=== PATIENT | female | born 1975 | race Caucasian/White ===

== ENCOUNTER 2017-01-24 11:04 | Day surgery (SDC) | payer BC ==
[~2017-01-24 11:04] MED LIST: Lactated Ringers 1,000 ML IV SCH; Lidocaine 1%/Sod Bicarbonate in NS 8.4% 1 ML Syringe IV PRN; Sodium Chloride 0.9% 10 ML Syringe FLUSH PRN
[2017-01-24] MEDS ORDERED: fentaNYL 100 MCG/2 ML SDV ONE (11:30)
[2017-01-24] MEDS ORDERED: Midazolam 1 MG/ML 2 ML SDV ONE (11:30)
[2017-01-24] MEDS ORDERED: Lidocaine 1% 4 ML ONE (11:30)
[2017-01-24] MEDS ORDERED: Propofol 200 MG/20 ML SDV ONE (11:30)
[2017-01-24] MEDS ORDERED: Dexamethasone 4 MG/ML 5 ML MDV ONE (11:33)
[2017-01-24] MEDS ORDERED: Ondansetron 4 MG/2 ML SDV ONE (11:34)
[2017-01-24] MEDS ORDERED: Ketamine 500 mg/10 ML MDV ONE (11:43)
--- NOTE | 2017-01-24 11:51 | PCM.PREANE ---
Preanesthetic Assessment - Anesthesia/Transfusion/Family Hx Anesthesia History: Prior Anesthesia Without Reaction Type of Anesthesia Reaction: Other (see below) Family History of Anesthesia Reaction: No Transfusion History: No Prior Transfusion(s) Type of Transfusion Reactions: Reports: Unknown Intubation History: Unknown - Review of Systems General: No Symptoms Pulmonary: No Symptoms Cardiovascular: No Symptoms Gastrointestinal: No symptoms Neurological: No Symptoms Other: Reports: None - Physical Assessment NPO Status Date: 01/23/17 NPO Status Time: 18:00 Pulse: 79 O2 Sat by Pulse Oximetry: 98 Respiratory Rate: 16 Blood Pressure: 112/75 Temperature: 37.4 C Height: 1.63 m Weight: 53.977 kg ASA Class: 2 Mental Status: Alert & Oriented x3 Airway Class: Mallampati = 1 Dentition: Reports: Normal Dentition Thyro-Mental Finger Breadths: 3 Mouth Opening Finger Breadths: 3 ROM/Head Extension: Full Lungs: Clear to auscultation, Normal respiratory effort Cardiovascular: Regular Rate, Regular Rhythm - Allergies Allergies/Adverse Reactions: Allergies Allergy/AdvReac Type Severity Reaction Status Date / Time No Known Allergies Allergy Verified 01/23/17 15:00 - Blood Blood Available: No Product(s) Available: None - Anesthesia Plan Pre-Op Medication Ordered: None - Acknowledgements Anesthesia Type Planned: MAC Pt an Appropriate Candidate for the Planned Anesthesia: Yes Alternatives and Risks of Anesthesia Discussed w Pt/Guardian: Yes Pt/Guardian Understands and Agrees with Anesthesia Plan: Yes PreAnesthesia Questionnaire - Past Health History Medical/Surgical History: Denies Medical/Surgical History HEENT History: Reports: None Cardiovascular History: Reports: None Respiratory History: Reports: None Gastrointestinal History: Reports: None Genitourinary History: Reports: None Musculoskeletal History: Reports: None Neurological History: Reports: None Psychiatric History: Reports: None, Anxiety Endocrine/Metabolic History: Reports: None Hematologic History: Reports: None Immunologic History: Reports: None Oncologic (Cancer) History: Reports: None Dermatologic History: Reports: None - Past Surgical History Head Surgeries/Procedures: Reports: None Musculoskeletal Surgical History: Reports: Other (see below) Other Musculoskeletal Surgeries/Procedures:: knee surgery for bursa sac removal - SUBSTANCE USE Smoking Status *Q: Never Smoker Tobacco Use Within Last Twelve Months: No Second Hand Smoke Exposure: No Recreational Drug Use History: No - HOME MEDS Home Medications: Home Meds Lactobacillus Acidophilus [Probiotic] 1 cap PO DAILY 10/10/16 [History] Multivitamin [Daily Multiple Vitamin] 1 tab PO DAILY 10/10/16 [History] Cyclobenzaprine [Flexeril] 10 mg PO TID PRN #40 tablet 01/24/17 [Rx] Hydrocodone/Acetaminophen [Lavina 5-325 Tablet] 1 - 2 each PO Q6H PRN #40 tablet 01/24/17 [Rx] - CURRENT (IN HOUSE) MEDS Current Meds: Current Medications Lactated Ringer's (Ringers, Lactated) 1,000 mls @ 125 mls/hr IV ASDIRECTED KRISTEN Stop: 01/24/17 23:00 Lidocaine/Sodium Bicarbonate (Buffered Lidocaine 1% In Ns 8.4%) 0.25 ml IV ONETIME PRN PRN Reason: Prior to IV Start Stop: 01/24/17 18:00 Sodium Chloride (Saline Flush) 10 ml FLUSH ASDIRECTED PRN PRN Reason: Keep Vein Open Stop: 01/24/17 18:00 Discontinued Medications Dexamethasone (Dexamethasone) Confirm Administered Dose 20 mg .ROUTE .STK-MED ONE Stop: 01/24/17 11:34 Fentanyl (Sublimaze) Confirm Administered Dose 100 mcg .ROUTE .STK-MED ONE Stop: 01/24/17 11:31 Lidocaine HCl (Xylocaine-Mpf 1%) Confirm Administered Dose 4 mls @ as directed .ROUTE .STK-MED ONE Stop: 01/24/17 11:31 Ketamine HCl (Ketalar) Confirm Administered Dose 500 mg .ROUTE .STK-MED ONE Stop: 01/24/17 11:44 Midazolam HCl (Versed 1 Mg/Ml) Confirm Administered Dose 2 mg .ROUTE .STK-MED ONE Stop: 01/24/17 11:31 Ondansetron HCl (Zofran) Confirm Administered Dose 4 mg .ROUTE .STK-MED ONE Stop: 01/24/17 11:35 Propofol (Diprivan 20 Ml) Confirm Administered Dose 200 mg .ROUTE .STK-MED ONE Stop: 01/24/17 11:31
--- NOTE | 2017-01-24 12:41 | PCM48HPAN ---
Post Anesthesia Note - EVALUATION WITHIN 48HRS OF ANESTHETIC Vital Signs in Normal Range: Yes Patient Participated in Evaluation: Yes Respiratory Function Stable: Yes Airway Patent: Yes Cardiovascular Function Stable: Yes Hydration Status Stable: Yes Pain Control Satisfactory: Yes Nausea and Vomiting Control Satisfactory: Yes Mental Status Recovered: Yes
[2017-01-24] MEDS ORDERED: Lactated Ringers 1,000 ML ONE (12:42)
[2017-01-24 13:06] VITALS: BP 110/73
--- NOTE | 2017-01-24 13:46 | CR ---
Left wrist: Multiple fluoroscopic spot views were obtained of the left wrist during manipulation. Study obtained utilizing C-arm device. Plate and screws noted within the distal radius. Equivocal extension of one screw into the joint space is noted although this is not identified on all views and could be projectional. No additional finding is appreciated. Fluoroscopy time given as 29.7 seconds. Impression: 1. Findings as noted above. Diagnostic code #3
--- NOTE | 2017-01-29 06:55 | PCM.OPNOTE ---
- General Post-Op/Procedure Note Date of Surgery/Procedure: 01/24/17 Operative Procedure(s): left wrist manipulation Pre Op Diagnosis: arthrofibrosis left wrist Post-Op Diagnosis: Same Anesthesia Technique: MAC Primary Surgeon: Antonio Moncada Anesthesia Provider: Low Nguyen Emt I/99: Deisy Boyd EBDanyelle in mLs: 0 Complications: None Condition: Good
--- NOTE | 2017-01-29 10:12 | OR ---
DATE OF OPERATION: 01/24/2017 SURGEON: Antonio Moncada MD OPERATION PERFORMED: Left wrist manipulation. PREOPERATIVE DIAGNOSIS: Arthrofibrosis, left wrist. POSTOPERATIVE DIAGNOSIS: Arthrofibrosis, left wrist. ANESTHESIA: MAC. ANESTHESIA PROVIDER: Low Nguyen. TESTER ARMATURE OR FIELDS: Deisy Boyd PA-C. ESTIMATED BLOOD LOSS: Zero mL. COMPLICATIONS: None. CONDITION: Stable. DESCRIPTION OF PROCEDURE: The patient was identified in the preop holding area. Proper site was marked and identified by the surgeon. The patient was taken back to the operating theater, where after adequate anesthesia, an OR wide time-out was performed. At this time, the left wrist manipulation was done. The patient did have some arthrofibrosis especially in extension. We were able to regain full extension and flexion; pronation and supination and pictures were taken of this during the procedure. We did use C-arm fluoroscopy to see if that screw was intra- articular, but by the looks of the screw at most it will be a small amount of subarticular and the subchondral bone on the dorsal side of the radial styloid. Otherwise, there was not much concern. At this time, the patient was awakened from anesthesia and was sent to the PACU in a stable condition. JANENE /[id number]
== END 2017-01-24 13:00 | disposition home or self-care (01) ==
LOC: JD.SDS 11:04
PROVIDERS: ATTEND Orthopaedic Surgery
PROC: 0RSPXZZ Reposition Left Wrist Joint, External Approach (ICD-10-PCS; principal; 2017-01-24)
DX: M24.632 Ankylosis, left wrist (principal); F41.9 Anxiety disorder, unspecified; Z79.899 Other long term (current) drug therapy; Z98.890 Other specified postprocedural states
CPT/HCPCS: 25259; 76000; 81025; J1100; J2250; J2405; J3010; J7120; 01820; J2704